=== PATIENT | female | born 1980 | race Caucasian/White ===

== ENCOUNTER 2016-08-30 01:40 | Emergency (ER) | payer BC, OTHER ==
[2016-08-30] MEDS ORDERED: AMPicillin 2 GM in Sodium Chloride 0.9% 100 ML IVPB STA (02:22)
[2016-08-30 02:25] VITALS: BMI 28.1
[2016-08-30] MEDS ORDERED: Betamethasone Soluspan 30 mg/5mL Inj Susp IM SCH (02:30)
[2016-08-30] MEDS ORDERED: Lactated Ringer's 1,000 ML IV SCH ×2 (02:30)
[2016-08-30] MEDS ORDERED: Erythromycin Base 500 mg Tab PO SCH (02:30)
--- NOTE | 2016-08-30 03:03 | OBHP ---
Datetime: 08/30/2016 02:47 IP Adm Impression: , intrauterine ; Ruptured Membranes IP Admit Plan: Admit to unit; Initiate labor protocol Admit Comment, IP Provider: Patient seen and evaluated at 0230 hours 35 y.o. , LMP 01/02/16, JOSE GUADALUPE 10/09/16, EGA 34w 2d c/o "gush of water" 0130 hours with slightly reddish discharge. (+) AFM; denies ctx. Last had sexual intercourse 8 months ago. care: Dr Carisa Zepeda; hypothyroid on synthroid. No other issues P Ob: 2010, VTOP x 1 - medical ; no complications P [employer] PILOT: 13 x monthly x 3 PMH: hypothyroid, 2012 PSH: denies NKDA Meds: PNV - QD; synthroid 80 micrograms p.o. QD Soc Hx: denies tobacco, illicit drug or EtOH use. x 3 years Fam Hx: Mother alive 60 y.o. Father alive 70 y.o. - both, no med issues. No fam h/o cancer P.E.: as above. WD in NAD. Awake, alert, oriented to time, person and place. Pleasant and cooperat anu. Assessment: 35 yo P0010, 34w 2d, PPROM, hypothyroid on synthroid. Category 1 tracing. D/W patient: 1) steroid administration for lung profile; 2) antibiotics - prophylaxis. Patient, and , expressed an understandnig and agree; no questoins offered. Patient is clinically stable. Plan: 1) Admit 2) NPO 3) IVFs 4) Continuous EFM 5) Admission labs, incl U/A and urine culture 6) [place] 7) Amp/ erythromycin 8) Conservative management - as per, and discussed with, Dr. Zepeda Pelvic Type - PN: Adequate Extremities - PN: Normal Abdomen - PN: Normal Back - PN: Normal Breast - PN: Not Done Lungs - PN: Normal Heart - PN: Normal Thyroid - PN: Normal Neurologic - PN: Normal HEENT - PN: Normal General - PN: Normal Weight - Estimated: 2270 Presentation-Admit: Vertex FHR - Baseline A Provider: 150 Membranes, Provider: Ruptured Contraction Comments Provider: 3-5 Comments, ACOG Physical Exam: Skin: warm, dry, intact Abdomen: Gravid. Soft. Non tender in all quadrants Fundal height 35 cm Perineum: moist Speculum: (+) pooling; (+) nitrazine All other systems reviewed - as per HPI Gestation - Est Wks by US: 34w 2d EGA AdmitDate IP: 34.2 Vital Signs Provider: Reviewed IP Indication for Induction: Not Applicable IP Chief Complaint: Suspected ruptured membranes NICHD Variability Prov Fetus A: Moderate 6-25bpm NICHD Accel Fetus A IP Provider: [id number] FHR Category Provider Fetus A: Category I NICHD Decel Fetus A IP Provider: None Dilatation, Provider: 1-2 Effacement, Provider: 25 Station, Provider: -3 Genitourinary Exam: Normal DTRs - PN: Not Done
[2016-08-30 03:13] LABS: BASO % 0.2 % (0.0-2.0); EOS # 0.2 K/uL (0.0-0.7); EOS % 1.6 % (0.0-4.0); HEMOGLOBIN 11.7 g/dL (11.0-16.0); LYMPH # 2.7 K/uL (1.0-4.3); LYMPH % 22.2 % (20.0-40.0); MEAN CELL VOLUME 89.4 fL (81.0-99.0); MEAN CORPUSCULAR HEMOGLOBIN 29.5 pg (27.0-31.0); MONO # 0.6 K/uL (0.0-0.8); MONO % 4.7 % (0.0-10.0); NEUT # 8.7 K/uL (1.8-7.0); NEUT % 71.3 % (50.0-75.0); RBC 3.96 Mil/uL (3.80-5.20); RED CELL DISTRIBUTION WIDTH 13.3 % (11.5-14.5); WHITE BLOOD COUNT 12.2 K/uL (4.8-10.8)
[2016-08-30 03:21] LABS: SQUAMOUS EPITHIAL 17 /hpf (0-5); URINE BACTERIA RARE (<OCC); URINE BILIRUBIN NEGATIVE (NEGATIVE); URINE BLOOD 3+ (NEGATIVE); URINE CLARITY Hazy (Clear); URINE COLOR Yellow (YELLOW); URINE GLUCOSE (UA) 1+ mg/dL (Normal); URINE LEUKOCYTE ESTERASE NEG Leu/uL (Negative); URINE NITRATE NEGATIVE (NEGATIVE); URINE PROTEIN 2+ mg/dL (NEGATIVE); URINE UROBILINOGEN NORMAL mg/dL (0.2-1.0)
[2016-08-30 03:27] LABS: ALB/GLOB RATIO 0.9 (1.0-2.1); ALT/SGPT 21 U/L (9-52); AST/SGOT 18 U/L (14-36); BLOOD UREA NITROGEN 6 mg/dL (7-17); GFR AFRICAN-AMERICAN > 60; GFR NON-AFRICAN AMERICAN > 60
[2016-08-30 03:28] LABS: CALCIUM 9.4 mg/dl (8.6-10.4)
[2016-08-30] MEDS: AMPicillin 1 GM in Sodium Chloride 0.9% 100 ML IVPB SCH ×2 (07:38→11:25)
== END 2016-08-30 11:10 | disposition short-term general hospital (02) ==
LOC: C.EROB 01:40 → UNDOADMIN 02:26 → C.4D 02:26 → UNDODISIN 11:10 → C.EROB 11:10
DX: O47.03 False labor before 37 completed weeks of gestation, third trimester (principal); Z3A.34 34 weeks gestation of pregnancy
CPT/HCPCS: 80053; 81001; 85025; 86592; 86703; 86850; 86900; 96361; 96365; 96372; 96376; 99284; J0290; J0702; J7120